=== PATIENT | male | born 1935 | race Caucasian/White ===

== ENCOUNTER 2018-06-19 17:24 | Observation (INO) ==
[2018-06-19] MEDS ORDERED: Morphine Sulfate Inj 2 MG/ML Vial IV.PUSH ONE (18:07)
[2018-06-19] MEDS ORDERED: Dicyclomine 10 MG Capsule PO ONE (18:07)
--- NOTE | 2018-06-19 18:14 | ED ---
HPI General Chief complaint: Nausea/Vomiting/Diarrhea Stated complaint: POSS FOOD POISONING N/V/D Time Seen by Provider: 06/19/18 17:59 Source: patient Mode of arrival: ambulatory Limitations: no limitations History of Present Illness HPI Narrative: The patient is a 82-year-old male who presents to the emergency department via private vehicle for nausea, vomiting, diarrhea, and abdominal pain. The patient states his symptoms started on Tuesday after he ate ground beef from [employer]. The patient states he has some nausea, vomiting, diarrhea on Tuesday night and Tuesday which resolved. The patient was feeling better on Tuesday and subsequently ate more ground beef with return of his symptoms. The states she tasted to me and it tasted "bad ". The patient complains of abdominal distention, epigastric abdominal pain, nausea, vomiting, and diarrhea. Patient describes the diarrhea as "cow piedad", loose, but not watery. No visible blood in the diarrhea according to the patient. He does note subjective fevers with chills and sweats. Symptoms are moderate. The patient is followed by his primary physician, Dr. Dariusz Kan as well as the [facility]. MD complaint: nausea, vomiting, diarrhea and abdominal pain Description of Vomiting: watery Description of Diarrhea: other Associated Abdominal Pain: Yes Location of pain: epigastric Radiation: diffuse Severity: moderate Severity scale (1-10): 5 Quality: cramping Pain Consistency: intermittent Relieving factors: none Exacerbating factors: none Context: possible food poisoning Associated symptoms: fever/chills and nausea/vomiting Related Data Home Medications Medication Instructions Recorded Confirmed omeprazole 20 mg PO DAILY 06/19/18 06/19/18 propranolol 10 mg PO DAILY 06/19/18 06/19/18 simvastatin 20 mg PO QPM 06/19/18 06/19/18 terazosin 5 mg PO BID 06/19/18 06/19/18 umeclidinium-vilanterol [Anoro 1 inh INHALATION Q24H 06/19/18 06/19/18 Ellipta] Allergies Allergy/AdvReac Type Severity Reaction Status Date / Time No Known Allergies Allergy Verified 06/19/18 17:50 Review of Systems ROS: all other systems reviewed are negative [facility] Medical History Medical History Barretts esophagus (Acute) COPD (chronic obstructive pulmonary disease) (Acute) GERD (gastroesophageal reflux disease) (Acute) Hernia (Acute) High cholesterol (Acute) Hypertension (Acute) Surgical History Surgical History History of appendectomy (Acute) Social History Social History Substance History: No History of Abuse Second Hand Smoke Exposure: No Smoking Status: Former smoker How Often Do You Have a Drink Containing Alcohol: 2 to 4 times a month Recent Travel in [facility] within the Last 8 Weeks: No Recent Out of Country Travel within the Last 8 Weeks: No Exam Narrative Exam Narrative: GENERAL: Awake, alert, pleasant 82-year-old male who appears his stated age and is in no acute respiratory distress. SKIN: Focused skin assessment warm/dry. HEAD: Atraumatic. Normocephalic. EYES: Pupils equal and round. No scleral icterus. No injection or drainage. ENT: No nasal bleeding or discharge. Mucous membranes pink and moist. NECK: Trachea midline. No JVD. CARDIOVASCULAR: Regular rate and rhythm. No murmur appreciated. RESPIRATORY: No accessory muscle use. Clear to auscultation. Breath sounds equal bilaterally. GASTROINTESTINAL: Abdomen distended, reducible on the local hernia, mild generalized tenderness but no guarding or rigidity. Rash noted in left lower quadrant within the crease of the pannus. MUSCULOSKELETAL: No obvious deformities. No clubbing. No cyanosis. No edema. NEUROLOGICAL: Awake and alert. No obvious cranial nerve deficits. Motor grossly within normal limits. Normal speech. PSYCHIATRIC: Appropriate mood and affect; insight and judgment normal. Course Initial Documented Vital Signs Temperature 98.0 F 06/19/18 17:50 Pulse Rate 84 06/19/18 17:50 Respiratory Rate 18 06/19/18 17:50 Blood Pressure 172/90 H 06/19/18 17:50 Pulse Oximetry 96 06/19/18 17:50 Last Documented Vital Signs Temperature 96.7 F L 06/20/18 02:30 Pulse Rate 84 06/20/18 02:30 Respiratory Rate 20 06/20/18 02:30 Blood Pressure 154/81 H 06/20/18 02:30 Pulse Oximetry 95 06/20/18 02:30 Medical Decision Making [facility] Narrative Medical decision making narrative: IV was established, labs were drawn and sent , and the patient was placed on cardiac telemetry monitoring and continuous pulse oximetry monitoring. The patient was administered morphine, Zofran, Bentyl, and IV fluids. CT of the abdomen and pelvis with IV and oral contrast was ordered. The patient continued to have vomiting despite 1 dose of Zofran, therefore, was administered a second dose of Zofran 4 mg intravenously at 6:43 PM. The patient was signed out to the oncoming physician at 7 PM. Accepted in transfer of care from Dr. Elkins for follow-up of pending CT and patient disposition At 10:35 PM patient is aware of imaging results abdomen remains soft nontender umbilical hernia is readily reducible without tenderness or pain or discomfort. Patient states he is known about the hernia for some time has been referred to general surgery and has not decided whether or not he wants to have any surgical intervention but denies any pain or fever and no discomfort with direct palpation or with reduction of the readily reducible umbilical hernia. Patient does complain of some ongoing nausea patient given dose of Reglan 10 mg IV Patient was intractable nausea given Phenergan 25 mg placed to [facility] service MD -- OBS Medical Screen Exam Complete: Yes Emergency Medical Condition: Yes Differential Diagnosis Differential Diagnosis: Differential diagnosis includes gastroenteritis, food poisoning, enteritis, colitis, dehydration, diverticulitis, partial small bowel obstruction, volvulus. Lab Data Lab results reviewed: Yes I reviewed the patient's lab results. Result diagrams: 06/19/18 18:10 06/19/18 18:10 Lab Results 06/19/18 06/19/18 06/19/18 Range/Units 18:10 18:10 18:10 CBC w Diff Auto diff final WBC 10.4 (4.0-11.0) th/mm3 RBC 4.51 (4.50-5.90) mil/mm3 Hgb 14.7 (13.0-17.0) gm/dL Hct 43.0 (39.0-51.0) % MCV 95.1 (80.0-100.0) fL MCH 32.5 (27.0-34.0) pg MCHC 34.2 (32.0-36.0) % RDW 14.1 (11.6-17.2) % Plt Count 182 (150-450) th/mm3 MPV 8.4 (7.0-11.0) fL Neut % (Auto) 81.0 H (16.0-70.0) % Lymph % (Auto) 10.3 (9.0-44.0) % [place] % (Auto) 4.3 (0.0-8.0) % Eos % (Auto) 0.3 (0.0-4.0) % Baso % (Auto) 4.1 H (0.0-2.0) % Neut # (Auto) 8.5 H (1.8-7.7) th/mm3 Lymph # (Auto) 1.1 (1.0-4.8) th/mm3 [place] # (Auto) 0.4 (0.0-0.9) th/mm3 Eos # (Auto) 0.0 (0.0-0.4) th/mm3 Baso # (Auto) 0.4 H (0.0-0.2) th/mm3 WBC Differential . Differential Comment . Sodium 136 (136-145) meq/L Potassium 3.7 (3.5-5.1) meq/L Chloride 102 (98-107) meq/L Carbon Dioxide 25.2 (21.0-32.0) meq/L Anion Gap 9 (5-15) meq/L BUN 14 (7-18) mg/dL Creatinine 1.10 (0.60-1.30) mg/dL Estimated GFR 64 L (>89) mL/min Random Glucose 141 H (74-106) mg/dL Calcium 9.3 (8.5-10.1) mg/dL Total Bilirubin 1.2 H Cancelled (0.2-1.0) mg/dL Direct Bilirubin Cancelled Cancelled Indirect Bilirubin Cancelled Cancelled AST 22 (15-37) U/L ALT 35 (12-78) U/L Alkaline Phosphatase 77 (45-117) U/L Troponin I Less than 0.02 L (0.02-0.05) ng/mL Total Protein 7.5 (6.4-8.2) g/dL Albumin 3.8 (3.4-5.0) g/dL Lipase 91 (73-393) U/L Urine Color (Yellw/Straw) Urine Clarity (Clear) Urine pH (5.0-8.5) Ur Specific Sherman (1.002-1.035) Urine Protein (Neg-Trace) mg/dL Urine Glucose (UA) (Negative) mg/dL Urine Ketones (Negative) mg/dL Urine Occult Blood (Negative) Urine Nitrate (Negative) Urine Bilirubin (Negative) Urine Urobilinogen (Less than 2) mg/dL Ur Leukocyte Esterase (Negative) Urine RBC (0-3) /hpf Urine WBC (0-5) /hpf Ur Squamous Epith Cells (0-5) /hpf Micro UA Comment Ur Microscopic Review Urine Culture Comments 06/20/18 Range/Units 02:30 CBC w Diff WBC (4.0-11.0) th/mm3 RBC (4.50-5.90) mil/mm3 Hgb (13.0-17.0) gm/dL Hct (39.0-51.0) % MCV (80.0-100.0) fL MCH (27.0-34.0) pg MCHC (32.0-36.0) % RDW (11.6-17.2) % Plt Count (150-450) th/mm3 MPV (7.0-11.0) fL Neut % (Auto) (16.0-70.0) % Lymph % (Auto) (9.0-44.0) % Bingham % (Auto) (0.0-8.0) % Eos % (Auto) (0.0-4.0) % Baso % (Auto) (0.0-2.0) % Neut # (Auto) (1.8-7.7) th/mm3 Lymph # (Auto) (1.0-4.8) th/mm3 [place] # (Auto) (0.0-0.9) th/mm3 Eos # (Auto) (0.0-0.4) th/mm3 Baso # (Auto) (0.0-0.2) th/mm3 WBC Differential Differential Comment Sodium (136-145) meq/L Potassium (3.5-5.1) meq/L Chloride (98-107) meq/L Carbon Dioxide (21.0-32.0) meq/L Anion Gap (5-15) meq/L BUN (7-18) mg/dL Creatinine (0.60-1.30) mg/dL Estimated GFR (>89) mL/min Random Glucose (74-106) mg/dL Calcium (8.5-10.1) mg/dL Total Bilirubin (0.2-1.0) mg/dL Direct Bilirubin Indirect Bilirubin AST (15-37) U/L ALT (12-78) U/L Alkaline Phosphatase (45-117) U/L Troponin I (0.02-0.05) ng/mL Total Protein (6.4-8.2) g/dL Albumin (3.4-5.0) g/dL Lipase (73-393) U/L Urine Color Yellow (Yellw/Straw) Urine Clarity Clear (Clear) Urine pH 6.5 (5.0-8.5) Ur Specific Sherman 1.010 (1.002-1.035) Urine Protein Trace (Neg-Trace) mg/dL Urine Glucose (UA) Negative (Negative) mg/dL Urine Ketones 15 H (Negative) mg/dL Urine Occult Blood Small H (Negative) Urine Nitrate Negative (Negative) Urine Bilirubin Negative (Negative) Urine Urobilinogen 0.2 (Less than 2) mg/dL Ur Leukocyte Esterase Negative (Negative) Urine RBC 4-15 H (0-3) /hpf Urine WBC 0-5 (0-5) /hpf Ur Squamous Epith Cells 0-5 (0-5) /hpf Micro UA Comment Culture not ind Ur Microscopic Review Microscopic reviewed Urine Culture Comments Culture not ind Imaging Data Radiologist's impression: Abdomen/Pelvis CT 06/19/18 18:07 CONCLUSION: 1. Mild induration of the fat-containing umbilical hernia suggests some inflammation. 2. Colonic diverticulosis without radiographic evidence of diverticulitis. 3. No dilated loops of small or large bowel. 4. Tiny bilateral pleural effusions and bibasilar atelectasis. Discharge Plan Discharge Disposition Patient Disposition: 30 Still Patient Discharge Condition Condition: Stable Discharge Details Diagnosis: Food poisoning, Nausea in adult Physicians Team ED Provider: Jairon Elkins Primary Care Provider: Alexi Kan V Attending Provider: Melecio Briceno Discharge Interventions Interventions: ED Discharge Assessment Last Done: 06/20/18 02:39 Status ED Status: Left Department Discharge Information Discharge Date/Time: 06/20/18 02:39
[2018-06-19] MEDS ORDERED: Sod Chloride 0.9% Inj 1,000 ML IV.CONT SCH (18:15)
[2018-06-19 18:22] LABS: Baso # (Auto) 0.4 th/mm3 (0.0-0.2); Baso % (Auto) 4.1 % (0.0-2.0); Eos % (Auto) 0.3 % (0.0-4.0); Hemoglobin 14.7 gm/dL (13.0-17.0); Lymph # (Auto) 1.1 th/mm3 (1.0-4.8); Lymph % (Auto) 10.3 % (9.0-44.0); Mean Corpuscular HGB Conc 34.2 % (32.0-36.0); Mean Corpuscular Hemoglobin 32.5 pg (27.0-34.0); Mean Corpuscular Volume 95.1 fL (80.0-100.0); Mean Platelet Volume 8.4 fL (7.0-11.0); Mono # (Auto) 0.4 th/mm3 (0.0-0.9); Mono % (Auto) 4.3 % (0.0-8.0); Neut # (Auto) 8.5 th/mm3 (1.8-7.7); Platelet Count 182 th/mm3 (150-450); Red Blood Count 4.51 mil/mm3 (4.50-5.90); Red Cell Distribution Width 14.1 % (11.6-17.2); White Blood Count 10.4 th/mm3 (4.0-11.0)
[2018-06-19] MEDS ORDERED: Diatrizoate Meglum/Diatrizoate Sod Liq 9 ML UDC ONE (18:22)
[2018-06-19 18:32] LABS: Chloride 102 meq/L (98-107); Potassium 3.7 meq/L (3.5-5.1); Sodium 136 meq/L (136-145)
[2018-06-19 18:35] LABS: Calcium 9.3 mg/dL (8.5-10.1)
[2018-06-19 18:36] LABS: Albumin 3.8 g/dL (3.4-5.0); Anion Gap 9 meq/L (5-15); Blood Urea Nitrogen 14 mg/dL (7-18); Carbon Dioxide 25.2 meq/L (21.0-32.0); Glucose,Random 141 mg/dL (74-106); Lipase 91 U/L (73-393)
[2018-06-19 18:39] LABS: Alanine Aminotransferase 35 U/L (12-78); Aspartate Aminotransferase 22 U/L (15-37); Glomerular Filtration Rate 64 mL/min (>89)
[2018-06-19 18:40] LABS: Total Protein 7.5 g/dL (6.4-8.2)
[2018-06-19 18:42] LABS: Alkaline Phosphatase 77 U/L (45-117)
--- NOTE | 2018-06-19 21:35 | CT ---
EXAM DATE: 06/19/2018 9:22 PM EDT AGE/SEX: 82 years / Male INDICATIONS: Abdominal pain. Nausea. CLINICAL DATA: This is the patient's initial encounter. Patient reports that signs and symptoms have been present for 1 day and indicates a pain score of 7/10. MEDICAL/SURGICAL HISTORY: Gastroesophageal reflux disease. Hypertension. Appendectomy. ORAL CONTRAST: Patient refused oral contrast. RADIATION DOSE: 21.65 CTDI (mGy) COMPARISON: No prior exams available for comparison. TECHNIQUE: Multiple contiguous axial images were obtained through the abdomen and pelvis following b olus infusion of 100 ml Omnipaque 350 (iohexol) nonionic water-soluble contrast as a single exam do se. Patient refused oral contrast. Using automated exposure control and adjustment of the mA and/or kV according to patient size, radiation dose was kept as low as reasonably achievable to obtain optim al diagnostic quality images. DICOM format image data is available electronically for review and com parison. FINDINGS: Lower Lungs: Bibasilar atelectasis, left greater than right and tiny bilateral pleural effusions. Liver: Mild diffuse fatty change throughout the liver. 2.5 cm cyst in the segment of the left lobe, s imilar to prior ultrasound in 2012. No solid lesions seen. No calcified gallstones. Spleen: Homogeneous density without enlargement. Pancreas: Unremarkable without mass or calcification. Kidneys: Normal in size and shape. No evidence of mass or hydronephrosis. Adrenal Glands: Unremarkable. Aorta: The aorta and proximal iliac vessels are grossly unremarkable without aneurysmal dilation. Bowel/Mesentery: No dilated loops of small and large bowel. Scattered diverticula throughout the lef t and sigmoid colon without radiographic evidence of diverticulitis. No evidence of free fluid. Abdominal Wall: Fat-containing umbilical hernia with mild induration of the fat within the hernia. Retroperitoneum: No evidence of adenopathy in the retrocrural, para-aortic, or deep pelvic regions. Bladder: Contours are smooth. Reproductive Organs: Normal sized to the prostate. Calcifications within the central zone. Inguinal: The inguinal region is unremarkable without evidence of adenopathy. Bony Structures: Unremarkable. CONCLUSION: 1. Mild induration of the fat-containing umbilical hernia suggests some inflammation. 2. Colonic diverticulosis without radiographic evidence of diverticulitis. 3. No dilated loops of small or large bowel. 4. Tiny bilateral pleural effusions and bibasilar atelectasis. Electronically signed by: Son Jones MD 06/19/2018 9:34 PM EDT
[2018-06-20] MEDS ORDERED: Promethazine 25 MG Supp RECTAL PRN (00:31)
[2018-06-20] MEDS ORDERED: Bisacodyl 10 MG Supp RECTAL PRN (00:33)
[2018-06-20] MEDS: Sod Chloride 0.9% Inj 1,000 ML IV.CONT SCH ×3 (00:40→10:52)
[2018-06-20] MEDS ORDERED: Morphine Inj 4 MG/ML Vial IV.PUSH PRN (02:30)
[2018-06-20 02:38] LABS: Bilirubin,Urine Negative (Negative); Clarity,Urine Clear (Clear); Color,Urine Yellow (Yellw/Straw); Glucose,Urine (UA) Negative (Negative); Leukocyte Esterase,Urine Negative (Negative); Nitrite,Urine Negative (Negative); PH,Urine 6.5 (5.0-8.5); Urobilinogen,Urine 0.2 mg/dL (Less than 2)
[2018-06-20 02:43] LABS: Squamous Epithelial Cell,Urine 0-5 /hpf (0-5); WBC,Urine 0-5 /hpf (0-5)
[2018-06-20] MEDS ORDERED: Acetaminophen 325 MG Tablet PO PRN (05:58)
[2018-06-20 07:11] LABS: Potassium 4.5 meq/L (3.5-5.1)
[2018-06-20 07:19] LABS: Calcium 8.4 mg/dL (8.5-10.1); Magnesium 2.3 mg/dL (1.5-2.5)
[2018-06-20] MEDS ORDERED: Umeclindinium 62.5 MCG/Vilanterol 25 MCG Inhaler INH SCH (09:00)
[2018-06-20] MEDS ORDERED: Pantoprazole Sodium 20 MG DR Tablet PO SCH (09:00)
[2018-06-20] MEDS ORDERED: Propranolol 10 MG Tablet PO SCH (09:00)
--- NOTE | 2018-06-20 11:04 | P.HP ---
History of Present Illness Primary Care Physician: Alexi Kan MD Chief Complaint: GI symptoms History of Present Illness: This is a 82-year-old male with a history of Monzon's esophagus, GERD, COPD, hyperlipidemia, hypertension and umbilical hernia. He presents to the emergency department complaining of nausea, vomiting, abdominal pain and diarrhea that started 4 days ago after eating ground beef from [employer]. Pain is described as steady sharp upper abdominal discomfort. Symptoms improved the following day but required 2 days later when he ate more of ground beef. Denies fever, chills, weakness, dizziness, sick contacts, recent travel well water and seafood ingestion. Patient started on IV hydration overnight. Today he feels better only complaint is slight nausea. Denies abdominal pain and diarrhea. CT scan showed mild induration of the fat-containing umbilical hernia suggesting some inflammation. Patient denies any problems with regards to his reducible umbilical hernia. All other systems reviewed negative. Review of Systems All other systems reviewed negative except as stated in HPI PMFSH - History History Provided By: Patient - Medical History Medical History: Medical History (Last Reviewed 06/20/18 @ 11:36 by Bridger Tao MD) Barretts esophagus COPD (chronic obstructive pulmonary disease) GERD (gastroesophageal reflux disease) Hernia High cholesterol Hypertension - Surgical History Surgical History: Surgical History (Last Reviewed 06/20/18 @ 11:36 by Bridger Tao MD) History of appendectomy - Family History Family History: Family History (Last Updated 06/20/18 @ 11:37 by Bridger Tao MD) Other Family history unknown - Tobacco History Second Hand Smoke Exposure: No Tobacco Use In Past 30 Days: No Smoking Status: Former smoker - Alcohol History How Often Do You Have a Drink Containing Alcohol: 2 to 4 times a month - Substance Use History Substance History: No History of Abuse - Travel History Recent Travel in the [place] Within the Last 8 Weeks: No Recent Travel Out of the Country Within the Last 8 Weeks: No - Immunization History Tetanus Immunization: <5 Years Hx Influenza Vaccine This Season: No Medications and Allergies Active Medications: Active Medications Acetaminophen (Tylenol) 650 mg PO Q4H PRN PRN Reason: Temp > 100.4 Al Hydroxide/Mg Hydroxide (Milk Of Magnesia Liq) 30 ml PO Q12H PRN PRN Reason: Mild Constipation Albuterol (Albuterol Neb (Prn)) 2.5 mg NEB Q2HR NEB PRN PRN Reason: SHORTNESS OF BREATH/WHEEZING Bisacodyl (Dulcolax Supp) 10 mg RECTAL DAILY PRN PRN Reason: SEVERE CONSITIPATION Sodium Chloride (Ns Inj) 1,000 mls @ 100 mls/hr IV.CONT .Q10H [facility] Last Admin: 06/20/18 10:52 Dose: Not Given Lactulose (Lactulose Liq) 30 ml PO DAILY PRN PRN Reason: SEVERE CONSITIPATION Morphine Sulfate (Morphine Inj) 2 mg IV.PUSH Q3H PRN PRN Reason: pain > 4 Ondansetron HCl (Zofran Inj) 4 mg IV.PUSH Q6H PRN PRN Reason: NAUSEA OR VOMITING Last Admin: 06/20/18 08:30 Dose: 4 mg Ondansetron HCl (Zofran Odt) 4 mg PO Q6H PRN PRN Reason: NAUSEA OR VOMITING Last Admin: 06/20/18 01:30 Dose: 4 mg Pantoprazole Sodium (Protonix) 20 mg PO DAILY [facility] Last Admin: 06/20/18 08:30 Dose: 20 mg Pravastatin Sodium (Pravachol) 40 mg PO QPM [facility] Promethazine HCl (Phenergan) 25 mg PO Q6H PRN PRN Reason: NAUSEA OR VOMITING Promethazine HCl (Phenergan Supp) 25 mg RECTAL Q6H PRN PRN Reason: NAUSEA OR VOMITING Propranolol HCl (Inderal) 10 mg PO DAILY [facility] Last Admin: 06/20/18 08:30 Dose: 10 mg Sennosides (Senokot) 17.2 mg PO Q12H PRN PRN Reason: Moderate Constipation Sodium Chloride (Ns Flush) 2 ml IV.FLUSH PRN PRN PRN Reason: FLUSH AFTER USING IV ACCESS Terazosin HCl (Hytrin) 5 mg PO BID [facility] Last Admin: 06/20/18 08:30 Dose: 5 mg Umeclidinium/Vilanterol (Anoro-Ellipta 62.5/25 Mcg Inh) 1 puff INH Q24H [facility] Last Admin: 06/20/18 08:29 Dose: 1 puff Allergies Allergy/AdvReac Type Severity Reaction Status Date / Time No Known Allergies Allergy Verified 06/19/18 17:50 Home Medications Medication Instructions Recorded Confirmed Type omeprazole 20 mg PO DAILY 06/19/18 06/19/18 History propranolol 10 mg PO DAILY 06/19/18 06/19/18 History simvastatin 20 mg PO QPM 06/19/18 06/19/18 History terazosin 5 mg PO BID 06/19/18 06/19/18 History umeclidinium-vilanterol [Anoro 1 inh INHALATION Q24H 06/19/18 06/19/18 History Ellipta] Exam Vital signs: Vital Signs 06/19/18 17:50 06/19/18 18:35 06/19/18 19:33 Temperature 98.0 F Pulse Rate 84 72 80 Respiratory Rate 18 18 16 Blood Pressure 172/90 H 149/75 H 147/73 H Pulse Oximetry 96 95 95 06/19/18 19:35 06/19/18 21:55 06/20/18 01:32 Temperature Pulse Rate 90 92 H Respiratory Rate 16 16 16 Blood Pressure 178/76 H 168/83 H Pulse Oximetry 96 92 L 06/20/18 02:30 06/20/18 07:55 Temperature 96.7 F L 98.0 F Pulse Rate 84 79 Respiratory Rate 20 20 Blood Pressure 154/81 H Pulse Oximetry 95 95 Intake & Output 06/19/18 06/20/18 06/20/18 18:59 06:59 18:59 Intake Total 1120 / 1120 1000 / 1000 Output Total 0 / 0 Balance 1120 / 1120 1000 / 1000 Weight 108.5 kg 109.8 kg Intake: IV 1000 / 1000 1000 / 1000 NS Inj 1,000 ML @ 100 mls/hr IV 1000 / 1000 1000 / 1000 .CONT .Q10H RAJAT Rx#:[id number] Oral 120 / 120 Output: Urine 0 / 0 Other: # Voids 1 Date of Last Bowel Movement 06/19/18 Weight On Admission 109.6 kg Narrative: GENERAL: Well-developed, obese in no distress. No signs of dehydration SKIN: Warm and dry. HEAD: Atraumatic. Normocephalic. EYES: Pupils equal and round. No scleral icterus. No injection or drainage. ENT: No nasal bleeding or discharge. Mucous membranes pink and moist. NECK: Trachea midline. No JVD. CARDIOVASCULAR: Regular rate and rhythm. RESPIRATORY: No accessory muscle use. Clear to auscultation. Breath sounds equal bilaterally. GASTROINTESTINAL: Abdomen soft, non-tender, obese with reducible umbilical hernia MUSCULOSKELETAL: Extremities without clubbing, cyanosis, or edema. No obvious deformities. NEUROLOGICAL: Awake and alert. No obvious cranial nerve deficits. Motor grossly within normal limits. Five out of 5 muscle strength in the arms and legs. Normal speech. PSYCHIATRIC: Appropriate mood and affect; insight and judgment normal. Results - Labs CBC & Chem 7: 06/19/18 18:10 06/20/18 06:37 Labs: Laboratory Results - last 24 hr 06/19/18 06/19/18 06/19/18 18:10 18:10 18:10 CBC w Diff Auto diff final WBC 10.4 RBC 4.51 Hgb 14.7 Hct 43.0 MCV 95.1 MCH 32.5 MCHC 34.2 RDW 14.1 Plt Count 182 MPV 8.4 Neut % (Auto) 81.0 H Lymph % (Auto) 10.3 [place] % (Auto) 4.3 Eos % (Auto) 0.3 Baso % (Auto) 4.1 H Neut # (Auto) 8.5 H Lymph # (Auto) 1.1 [place] # (Auto) 0.4 Eos # (Auto) 0.0 Baso # (Auto) 0.4 H WBC Differential . Differential Comment . Sodium 136 Potassium 3.7 Chloride 102 Carbon Dioxide 25.2 Anion Gap 9 BUN 14 Creatinine 1.10 Estimated GFR 64 L Random Glucose 141 H Calcium 9.3 Magnesium Total Bilirubin 1.2 H Cancelled Direct Bilirubin Cancelled Cancelled Indirect Bilirubin Cancelled Cancelled AST 22 ALT 35 Alkaline Phosphatase 77 Troponin I Less than 0.02 L Total Protein 7.5 Albumin 3.8 Lipase 91 Urine Color Urine Clarity Urine pH Ur Specific [place] Urine Protein Urine Glucose (UA) Urine Ketones Urine Occult Blood Urine Nitrate Urine Bilirubin Urine Urobilinogen Ur Leukocyte Esterase Urine RBC Urine WBC Ur Squamous Epith Cells Micro UA Comment Ur Microscopic Review Urine Culture Comments 06/20/18 06/20/18 06/20/18 00:00 02:30 06:37 CBC w Diff WBC RBC Hgb Hct MCV MCH MCHC RDW Plt Count MPV Neut % (Auto) Lymph % (Auto) [place] % (Auto) Eos % (Auto) Baso % (Auto) Neut # (Auto) Lymph # (Auto) [place] # (Auto) Eos # (Auto) Baso # (Auto) WBC Differential Differential Comment Sodium 139 Potassium 4.5 D Chloride 105 Carbon Dioxide 29.0 Anion Gap 5 BUN 16 Creatinine 1.10 Estimated GFR 64 L Random Glucose 137 H Calcium 8.4 L D Magnesium 2.3 Total Bilirubin 0.9 Direct Bilirubin 0.2 Indirect Bilirubin 0.7 AST ALT Alkaline Phosphatase Troponin I Total Protein Albumin Lipase Urine Color Yellow Urine Clarity Clear Urine pH 6.5 Ur Specific [place] 1.010 Urine Protein Trace Urine Glucose (UA) Negative Urine Ketones 15 H Urine Occult Blood Small H Urine Nitrate Negative Urine Bilirubin Negative Urine Urobilinogen 0.2 Ur Leukocyte Esterase Negative Urine RBC 4-15 H Urine WBC 0-5 Ur Squamous Epith Cells 0-5 Micro UA Comment Culture not ind Ur Microscopic Review Microscopic reviewed Urine Culture Comments Culture not ind - Imaging Impressions Abdomen/Pelvis CT 06/19/18 18:07 CONCLUSION: 1. Mild induration of the fat-containing umbilical hernia suggests some inflammation. 2. Colonic diverticulosis without radiographic evidence of diverticulitis. 3. No dilated loops of small or large bowel. 4. Tiny bilateral pleural effusions and bibasilar atelectasis. Caprini VTE Risk Assessment Caprini VTE Risk Assessment: Moderate/High Risk (score >= 2) Caprini Risk Assessment Model: Point Value = 1 Point Value = 2 Point Value = 3 Point Value = 5 Age 41-60 Minor surgery BMI > 25 kg/m2 Swollen legs Varicose veins or History of unexplained or recurrent spontaneous Oral contraceptives or hormone replacement Sepsis (< 1 month) Serious lung disease, including pneumonia (< 1 month) Abnormal pulmonary function Acute myocardial infarction Congestive heart failure (< 1 month) History of inflammatory bowel disease Medical patient at bed rest Age 61-74 Arthroscopic surgery Major open surgery (> 45 min) Laparoscopic surgery (> 45 min) Malignancy Confined to bed (> 72 hours) Immobilizing plaster cast Central venous access Age >= 75 History of VTE Family history of VTE Factor V Leiden Prothrombin [id number] Lupus anticoagulant Anticardiolipin antibodies Elevated serum homocysteine Heparin-induced thrombocytopenia Other congenital or acquired thrombophilia Stroke (< 1 month) Elective arthroplasty Hip, pelvis, or leg fracture Acute spinal cord injury (< 1 month) Prophylaxis Regimen: Total Risk Factor Score Risk Level Prophylaxis Regimen 0-1 Low Early ambulation 2 Moderate Order ONE of the following: *Sequential Compression Device (SCD) *Heparin 5000 units SQ BID 3-4 Higher Order ONE of the following medications: *Heparin 5000 units SQ TID *Enoxaparin/Lovenox 40 mg SQ daily (WT < 150 kg, CrCl > 30 mL/min) *Enoxaparin/Lovenox 30 mg SQ daily (WT < 150 kg, CrCl > 10-29 mL/min) *Enoxaparin/Lovenox 30 mg SQ BID (WT < 150 kg, CrCl > 30 mL/min) AND/OR *Sequential Compression Device (SCD) 5 or more Highest Order ONE of the following medications: *Heparin 5000 units SQ TID (Preferred with Epidurals) *Enoxaparin/Lovenox 40 mg SQ daily (WT < 150 kg, CrCl > 30 mL/min) *Enoxaparin/Lovenox 30 mg SQ daily (WT < 150 kg, CrCl > 10-29 mL/min) *Enoxaparin/Lovenox 30 mg SQ BID (WT < 150 kg, CrCl > 30 mL/min) AND *Sequential Compression Device (SCD) Assessment and Plan - Plan This is a 82-year-old male with a history of Monzon's esophagus, GERD, COPD, hyperlipidemia, hypertension and umbilical hernia. He presents to the emergency department with nausea, vomiting, abdominal pain and diarrhea that started 4 days ago after eating ground beef from [employer]. Food poisoning which is resolving. If he tolerates diet patient will be discharged home. Decrease IV fluid. Symptomatic treatment. CT scan showed mild induration of the fat-containing umbilical hernia suggesting some inflammation. Patient denies any problems with regards to his reducible umbilical hernia. Follow-up with Dr. Byrd outpatient DVT prophylaxis with SCD and early ambulation Discharge Planning: Discharge patient to home Condition on discharge: Improved Regular Diet as tolerated Ad Shazia activity no driving Rx written: Matilda Follow-up with primary care physician and general surgery
[2018-06-20 11:49] VITALS: O2SAT 92
[2018-06-20 16:20] VITALS: BP 139/70; PULSE 112; RESP 22; TEMP 96.3
--- NOTE | 2018-06-20 22:58 | ECG ---
Date Performed: 06/20/2018 Time Performed: 00:14:42 PTAGE: 82 years EKG: Sinus rhythm WITH OCCASIONAL VENTRICULAR PREMATURE COMPLEXES RIGHT BUNDLE BRANCH BLOCK LEFT ANTERIOR FASCICULAR B LOCK ABNORMAL ECG NO PREVIOUS TRACING DOCTOR: Negra Ascencio Interpretating Date/Time 06/20/2018 22:56:47
== END 2018-06-20 17:44 | disposition home or self-care (01) ==
LOC: PHED 17:24 → PHEDA 17:24 → PH3 06-20 02:21
PROVIDERS: ADMIT Internal Medicine; ATTEND Internal Medicine